=== PATIENT | male | born 1990 | race Caucasian/White ===

== ENCOUNTER 2017-12-23 23:17 | Inpatient (IN) ==
[2017-12-23] MEDS ORDERED: Isovue-370 500 ML INFUS..BTL IV ONE (23:28)
[2017-12-23] MEDS ORDERED: Famotidine 20 MG/2 ML VIAL IVP ONE (23:29)
[2017-12-23] MEDS ORDERED: *HR* FentaNYL (PF) 100 MCG/2 ML VIAL IVP ONE (23:29)
[2017-12-23] MEDS ORDERED: Ondansetron 4 MG/2 ML VIAL IVP ONE (23:29)
--- NOTE | 2017-12-23 23:30 | Emergency Department Note ---
Disposition Clinical Impression: Small bowel obstruction, Abdominal pain Disposition: Admitted As Inpatient Condition: Fair General Adult HPI - General Chief complaint: ED Abdominal Pain Stated complaint: "Abd Pain/Here Earlier Today" Time Seen by Provider: 12/23/17 23:25 Source: patient, family Limitations: no limitations - History of Present Illness Pain Scale: 10 - Related Data Home Medications Medication Instructions Recorded Confirmed RX: SUMAtriptan Succinate [Imitrex] 100 mg PO PRN PRN 12/11/14 12/22/14 RX: Topiramate [Topamax] 50 mg PO BID 12/11/14 12/22/14 Previous Rx's Medication Instructions Recorded OxyCODONE/APAP 5/325 [Percocet 1 each PO Q4HR PRN #30 tablet 12/22/14 5/325] Phenazopyridine HCl [Pyridium] 200 mg PO TIDAC #12 tab 12/22/14 HYDROcodone/Acet 5/325 mg [[place] 1 - 2 tab PO Q6H PRN 3 Days #10 tab 12/22/17 5-325 mg] Ondansetron ODT [Zofran ODT] 4 mg SL Q8HR PRN #12 tab.rapdis 12/22/17 Ondansetron ODT [Zofran ODT] 4 mg SL Q6HR #4 tab.rapdis 12/23/17 Allergies Allergy/AdvReac Type Severity Reaction Status Date / Time sulfamethoxazole Allergy Rash Verified 12/23/17 16:25 [From Bactrim] trimethoprim [From Bactrim] Allergy Rash Verified 12/23/17 16:25 Past Medical History - Past Medical History Medical history: Reports: kidney stones, migraine Surgical history: Reports: appendectomy Psychiatric history: Reports: no psych history - Social History Smoking Status: Never smoker Smokeless Tobacco Status: No Alcohol use: Reports: none Drug use: Reports: none Physical Exam - General Limitations: no limitations General appearance: alert, in no apparent distress Course Vital Signs Temperature 98.2 F 12/23/17 23:23 Pulse Rate 63 12/23/17 23:23 Respiratory Rate 22 12/23/17 23:23 Blood Pressure 126/89 12/23/17 23:23 O2 Sat by Pulse Oximetry 99 12/23/17 23:23 Temperature 98.2 F 12/23/17 23:23 Pulse Rate 52 12/24/17 04:59 Respiratory Rate 18 12/24/17 04:59 Blood Pressure 112/64 12/24/17 04:59 O2 Sat by Pulse Oximetry 100 12/24/17 04:59 Oxygen Delivery Oxygen Delivery Room Air Medical Decision Making - Lab Data Result diagrams: 12/24/17 04:30 12/24/17 04:30 Lab Results 12/23/17 12/23/17 12/24/17 Range/Units 23:50 23:50 00:30 WBC 6.7 (4.3-11.1) K/mcL RBC 5.19 (4.19-5.50) M/mcL Hgb 15.3 (12.9-16.9) g/dL Hct 43.1 (37.5-50.1) % MCV 83.0 (83.0-100.0) fL MCH 29.5 (28.0-33.3) pg MCHC 35.5 (31.6-35.5) g/dL RDW 12.0 (11.5-14.5) % Plt Count 199 (140-400) K/mcL MPV 9.8 (9.4-12.4) fL Immature Gran % 0.2 (0-4) % Seg Neutrophils % 71.8 % Lymphocytes % 20.8 % Monocytes % 6.5 % Eosinophils % 0.5 % Basophils % 0.2 % Neutrophils # 4.8 (1.6-8.9) K/mcL Lymphocytes # 1.4 (0.6-4.6) K/mcL Monocytes # 0.4 (0.0-1.3) K/mcL Eosinophils # 0.0 (0.0-0.6) K/mcL Basophils # 0.0 (0.0-0.2) K/mcL Sodium 138 (136-145) mEq/L Potassium 3.9 (3.5-5.1) mEq/L Chloride 106 (98-107) mEq/L Carbon Dioxide 23 (23-29) mEq/L BUN 11 (6-20) mg/dL Creatinine 0.86 (0.70-1.30) mg/dL Est GFR ( Amer) > 60 (> 60) Est GFR (Non-Af Amer) > 60 (> 60) BUN/Creatinine Ratio 13 (6-26) Glucose 103 (70-105) mg/dL Calculated Osmolality 286 (280-300) Lactic Acid 0.7 (0.5-2.2) mmol/L Calcium 9.2 (8.6-10.3) mg/dL Magnesium (1.6-2.6) mg/dL Total Bilirubin 0.8 (0.3-1.0) mg/dL AST 19 (13-39) Units/L ALT 31 (7-52) Units/L Alkaline Phosphatase 68 (34-104) Units/L Serum Total Protein 6.7 (6.4-8.9) g/dL Albumin 4.5 (3.5-5.7) g/dL Globulin 2.2 L (2.4-3.5) g/dL Albumin/Globulin Ratio 2.0 (1.1-2.2) Amylase 18 L (29-103) Units/L Lipase 9 L (11-82) Units/L 12/24/17 12/24/17 Range/Units 04:30 04:30 WBC 5.1 (4.3-11.1) K/mcL RBC 4.90 (4.19-5.50) M/mcL Hgb 14.4 (12.9-16.9) g/dL Hct 41.5 (37.5-50.1) % MCV 84.7 (83.0-100.0) fL MCH 29.4 (28.0-33.3) pg MCHC 34.7 (31.6-35.5) g/dL RDW 12.1 (11.5-14.5) % Plt Count 165 (140-400) K/mcL MPV 9.3 L (9.4-12.4) fL Immature Gran % 0.2 (0-4) % Seg Neutrophils % 63.1 % Lymphocytes % 29.2 % Monocytes % 6.7 % Eosinophils % 0.6 % Basophils % 0.2 % Neutrophils # 3.2 (1.6-8.9) K/mcL Lymphocytes # 1.5 (0.6-4.6) K/mcL Monocytes # 0.3 (0.0-1.3) K/mcL Eosinophils # 0.0 (0.0-0.6) K/mcL Basophils # 0.0 (0.0-0.2) K/mcL Sodium 138 (136-145) mEq/L Potassium 4.0 (3.5-5.1) mEq/L Chloride 108 H (98-107) mEq/L Carbon Dioxide 22 L (23-29) mEq/L BUN 11 (6-20) mg/dL Creatinine 0.76 (0.70-1.30) mg/dL Est GFR ( Amer) > 60 (> 60) Est GFR (Non-Af Amer) > 60 (> 60) BUN/Creatinine Ratio 14 (6-26) Glucose 97 (70-105) mg/dL Calculated Osmolality 285 (280-300) Lactic Acid (0.5-2.2) mmol/L Calcium 8.6 (8.6-10.3) mg/dL Magnesium 1.8 (1.6-2.6) mg/dL Total Bilirubin (0.3-1.0) mg/dL AST (13-39) Units/L ALT (7-52) Units/L Alkaline Phosphatase (34-104) Units/L Serum Total Protein (6.4-8.9) g/dL Albumin (3.5-5.7) g/dL Globulin (2.4-3.5) g/dL Albumin/Globulin Ratio (1.1-2.2) Amylase (29-103) Units/L Lipase (11-82) Units/L Attestation Statement - Attestation Attestation: I examined this patient and my medical decision-making was reviewed with the Resident Physician. I agree with the documented findings, disposition and treatment plan as described except to the extent set forth below. [id number] time provided Patient presents with upper epigastric and right upper quadrant abdominal pain. He is extremely anxious, tearful and appears in pain upon arrival to the medical treatment area. Pain is been present for the past 3 days. I did review the transcribed report of the gallbladder ultrasound dated earlier today as well as laboratory investigation obtained within the past 48 hours.
--- NOTE | 2017-12-23 23:44 | Emergency Department Note ---
Disposition Clinical Impression: Small bowel obstruction Abdominal pain Qualifiers: Abdominal location: epigastric Qualified Code(s): R10.13 - Epigastric pain Disposition: Admitted As Inpatient Condition: Fair Time of Disposition: 03:48 Abdominal Pain HPI - General Chief Complaint: ED Abdominal Pain Stated Complaint: "Abd Pain/Here Earlier Today" Time Seen by Provider: 12/23/17 23:25 Source: patient, family Nursing Notes Reviewed: Yes Vital Signs Reviewed: Yes - History of Present Illness HPI Narrative: 27 year old male presents for abdominal pain that started 3 days ago. Patient indicates pain at epigastrium that radiates straight to the back. Describes intermittent stabbing pain that worsens with eating/drinking. Patient states that he hasn't eaten or drank anything for 2 days. States anything he takes comes right back up, including oral meds. Patient states he has vicodin for the pain but he can't keep it down. Patient reports that he has an appointment with surgery tomorrow to talk about gallbladder sludge, but states he can't wait til tomorrow. Denies fever, urinary symptoms, bowel changes, chest pain, shortness of breath, swelling. Mother reports medical history of migraine, kidney stones, appendectomy, tonsillectomy, adenoidectomy. Denies tobacco, alcohol, drugs. Pain Scale: 10 - Related Data Home Medications Medication Instructions Recorded Confirmed SUMAtriptan Succinate [Imitrex] 100 mg PO PRN PRN 12/11/14 12/22/14 Topiramate [Topamax] 50 mg PO BID 12/11/14 12/22/14 Previous Rx's Medication Instructions Recorded OxyCODONE/APAP 5/325 [Percocet 1 each PO Q4HR PRN #30 tablet 12/22/14 5/325] Phenazopyridine HCl [Pyridium] 200 mg PO TIDAC #12 tab 12/22/14 HYDROcodone/Acet 5/325 mg [[place] 1 - 2 tab PO Q6H PRN 3 Days #10 tab 12/22/17 5-325 mg] Ondansetron ODT [Zofran ODT] 4 mg SL Q8HR PRN #12 tab.rapdis 12/22/17 Ondansetron ODT [Zofran ODT] 4 mg SL Q6HR #4 tab.rapdis 11/14/18 Allergies Allergy/AdvReac Type Severity Reaction Status Date / Time sulfamethoxazole Allergy Rash Verified 12/23/17 16:25 [From Bactrim] trimethoprim [From Bactrim] Allergy Rash Verified 12/23/17 16:25 Constitutional: Denies: fever, chills Eyes: Denies: eye pain, eye discharge ENT ED: Denies: ear pain, throat pain Cardiovascular: Denies: chest pain, palpitations Respiratory: Denies: cough, dyspnea Gastrointestinal: Reports: abdominal pain, vomiting Genitourinary: Denies: urgency, dysuria Musculoskeletal: Denies: back pain, neck pain Integumentary: Denies: rash, abrasion Neurological: Denies: headache, weakness Abdominal Pain PMH - Past Medical History Medical history: Reports: kidney stones, migraine Male Surgical History: Reports: Adenoidectomy, appendectomy, Tonsillectomy Psychiatric history: Reports: no psych history - Social History Smoking status: Never smoker Alcohol use: Reports: none Drug use: Reports: none Physical Exam - General Limitations: no limitations General appearance: alert, in distress - Head Head exam: atraumatic, normocephalic - Eye Eye exam: Present: PERRL, EOMI - ENT ENT exam: normal oropharynx, mucous membranes dry - Neck Neck exam: Present: normal inspection - Chest Chest inspection: Present: normal inspection, symmetric chest wall rise - Respiratory Respiratory exam: Present: normal lung sounds bilaterally. Absent: respiratory distress - Cardiovascular Cardiovascular exam: Present: regular rate, normal rhythm - Abdominal Exam Abdominal exam: Present: soft, tenderness, normal bowel sounds. Absent: distention, guarding, rebound, rigidity Abdominal tenderness: Present: epigastrium - Extremities Exam Extremities exam: Present: normal inspection. Absent: tenderness, pedal edema, joint swelling - Neurological Exam Neurological exam: Present: alert, oriented X3 - Skin Skin exam: Present: warm, dry, intact, normal color Course Course Narrative: 27 year old male presents for epigastric abdominal pain exacerbated by oral intake. Patient is alert and oriented and hemodynamically stable. He appears in distress. He is holding his abdomen rocking back and forth and groaning in pain. On exam, there is tenderness to palpation of epigastrium. Palpation of RUQ also causes pain at epigastrium. No guarding or rebound. Will check belly labs. Will check CT abd/pelvis. Will provide IV pepcid, zofran, fentanyl, and IVF. Review of medical records shows that patient presented to [facility] ED 2 days ago. Labs were unremarkable. Had CT abd/pelvis and was diagnosed with bilateral nonobstructing renal stones. Yesterday, patient presented to [place] ED. Labwork was negative. Patient improved and was discharged with zofran and norco for biliary colic. Patient was instructed to get outpatient ultrasound and followup with surgery. Patient presented again earlier today. Belly labs were negative. Had RUQ ultrasound that showed artifact vs gallbladder sludge. Patient improved and was discharged with zofran and oxycodone for biliary colic. Patient was set up with appointment with surgery tomorrow. - Reevaluation(s) Reevaluation #1: CBC is unremarkable, there is no leukocytosis. CMP is unremarkable. Amylase and lipase are negative. Lactic is normal. Checking on patient at 00:40, patient is resting comfortably in bed. No acute distress. He's not holding his abdomen, groaning, or crying. Patient states he feels better. Patient has been trying to eat the prescribed zofran instead of placing under tongue and has not been able to keep zofran down. Patient was counseled on correct usage of sublingual zofran. Checking on patient at 01:12, patient is sitting in bed bent over and crying that he's in pain. States pain is as bad as when he first came in. It has been 1hr since 100mcg fentanyl administration. Will provide dilaudid. Checking on patient at 01:48, patient is sleeping. Time: 01:13 Reevaluation #2: CT abd/pelvis shows acute SBO in LLQ. Discussed results with patient. Patient voiced understanding and agree to admission. Time: 03:47 Vital Signs Temperature 98.2 F 12/23/17 23:23 Pulse Rate 63 12/23/17 23:23 Respiratory Rate 22 12/23/17 23:23 Blood Pressure 126/89 12/23/17 23:23 O2 Sat by Pulse Oximetry 99 12/23/17 23:23 Temperature 98.2 F 12/23/17 23:23 Pulse Rate 46 12/24/17 04:21 Respiratory Rate 16 12/24/17 04:21 Blood Pressure 105/62 12/24/17 04:21 O2 Sat by Pulse Oximetry 94 12/24/17 04:21 Oxygen Delivery Oxygen Delivery Room Air Abdominal Pain - MDM Narrative Medical decision making narrative: Abdomen/Pelvis CT 12/24/17 23:28 IMPRESSION: 1. Acute small bowel obstruction with a gradual transition to normal caliber in the left lower quadrant. 2. Nonobstructing bilateral renal calculi. D/ / Yasmine Cooper MD / Yasmine Cooper MD Interpreting Provider: Yasmine Cooper MD - Medical Records Medical records reviewed: Yes I reviewed the patient's medical records. - Lab Data Lab results reviewed: Yes I reviewed the patient's lab results. Result diagrams: 12/23/17 23:50 12/23/17 23:50 Lab Results 12/23/17 12/23/17 12/24/17 Range/Units 23:50 23:50 00:30 WBC 6.7 (4.3-11.1) K/mcL RBC 5.19 (4.19-5.50) M/mcL Hgb 15.3 (12.9-16.9) g/dL Hct 43.1 (37.5-50.1) % MCV 83.0 (83.0-100.0) fL MCH 29.5 (28.0-33.3) pg MCHC 35.5 (31.6-35.5) g/dL RDW 12.0 (11.5-14.5) % Plt Count 199 (140-400) K/mcL MPV 9.8 (9.4-12.4) fL Immature Gran % 0.2 (0-4) % Seg Neutrophils % 71.8 % Lymphocytes % 20.8 % Monocytes % 6.5 % Eosinophils % 0.5 % Basophils % 0.2 % Neutrophils # 4.8 (1.6-8.9) K/mcL Lymphocytes # 1.4 (0.6-4.6) K/mcL Monocytes # 0.4 (0.0-1.3) K/mcL Eosinophils # 0.0 (0.0-0.6) K/mcL Basophils # 0.0 (0.0-0.2) K/mcL Sodium 138 (136-145) mEq/L Potassium 3.9 (3.5-5.1) mEq/L Chloride 106 (98-107) mEq/L Carbon Dioxide 23 (23-29) mEq/L BUN 11 (6-20) mg/dL Creatinine 0.86 (0.70-1.30) mg/dL Est GFR ( Amer) > 60 (> 60) Est GFR (Non-Af Amer) > 60 (> 60) BUN/Creatinine Ratio 13 (6-26) Glucose 103 (70-105) mg/dL Calculated Osmolality 286 (280-300) Lactic Acid 0.7 (0.5-2.2) mmol/L Calcium 9.2 (8.6-10.3) mg/dL Total Bilirubin 0.8 (0.3-1.0) mg/dL AST 19 (13-39) Units/L ALT 31 (7-52) Units/L Alkaline Phosphatase 68 (34-104) Units/L Serum Total Protein 6.7 (6.4-8.9) g/dL Albumin 4.5 (3.5-5.7) g/dL Globulin 2.2 L (2.4-3.5) g/dL Albumin/Globulin Ratio 2.0 (1.1-2.2) Amylase 18 L (29-103) Units/L Lipase 9 L (11-82) Units/L - Radiology Data Radiology results reviewed: Yes I reviewed the patient's radiology results.
[2017-12-23] MEDS ORDERED: 0.9 % Sodium Chloride 1,000 ML IVC ONE (23:58)
[2017-12-24] MEDS ORDERED: *HR* FentaNYL (PF) 100 MCG/2 ML VIAL IVP ONE (00:01)
[2017-12-24 00:27] LABS: Basophils % 0.2 %; Eosinophils % 0.5 %; Hematocrit 43.1 % (37.5-50.1); Hemoglobin 15.3 g/dL (12.9-16.9); Immature Granulocytes % 0.2 % (0-4); Lymphocytes # 1.4 K/mcL (0.6-4.6); Lymphocytes % 20.8 %; Mean Corpuscular HGB Conc 35.5 g/dL (31.6-35.5); Mean Corpuscular Hemoglobin 29.5 pg (28.0-33.3); Mean Platelet Volume 9.8 fL (9.4-12.4); Monocytes # 0.4 K/mcL (0.0-1.3); Monocytes % 6.5 %; Neutrophils # 4.8 K/mcL (1.6-8.9); Platelet Count 199 K/mcL (140-400); Red Blood Count 5.19 M/mcL (4.19-5.50); Segmented Neutrophils % 71.8 %
[2017-12-24 00:55] LABS: Alanine Aminotransferase 31 Units/L (7-52); Albumin 4.5 g/dL (3.5-5.7); Alkaline Phosphatase 68 Units/L (34-104); Amylase 18 Units/L (29-103); Aspartate Amino Transferase 19 Units/L (13-39); BUN/Creatinine Ratio 13 (6-26); Bilirubin,Total 0.8 mg/dL (0.3-1.0); Blood Urea Nitrogen 11 mg/dL (6-20); Calcium 9.2 mg/dL (8.6-10.3); Carbon Dioxide 23 mEq/L (23-29); Chloride 106 mEq/L (98-107); Globulin 2.2 g/dL (2.4-3.5); Glucose 103 mg/dL (70-105); Lipase 9 Units/L (11-82); Osmolality,Calculated 286 (280-300); Potassium 3.9 mEq/L (3.5-5.1); Sodium 138 mEq/L (136-145); Total Protein 6.7 g/dL (6.4-8.9); eGFR For Non-African Americans > 60 (> 60)
[2017-12-24] MEDS ORDERED: *HR* HYDROmorphone (PF) 1 MG/ML SYRINGE IVP ONE ×2 (01:10→03:56)
[2017-12-24] MEDS ORDERED: Naloxone 0.4 MG/ML INJ IVP PRN ×2 (03:55→21:49)
[2017-12-24] MEDS ORDERED: Ondansetron 4 MG/2 ML VIAL IVP PRN ×2 (03:55→21:49)
--- NOTE | 2017-12-24 04:04 | Internal Med History&Physical ---
Date of Encounter: 12/24/17 Time of Encounter: 03:59 Internal Medicine - H&P: HPI Chief complaint: Abdominal pain Admitted From: Emergency Dept Plans for Post Hospital Care: Home History of present illness: Mr. Hawkins is a 27 year old male who has a history of migraines, bradycardia that has been worked up in the past with holter monitor and stress test that were all unremarkable, and history of kidney stones who presented with abdominal pain that has been going on for about 3 days. Mostly epigastric pain with radiation to the back. He has been vomiting and nauseous. Has not been able to keep anything down PO boone. The patient has had multiple presentations to the ED here and at [facility] for the last 3 days. He was seen in our ED twice over the last 24 hours. At [facility] apparently had a CT abdomen and pelvis that only showed nonobstructing bilateral renal stones. He was discharged from there. He presented to the ED a couple times as I said since then and was recommended follow-up with surgery. There was a suspicion that he may have gallbladder disease and was ordered a gallbladder ultrasound which came back showing possible gallbladder sludge. Finally a CT abdomen and pelvis was repeated in the ED this time and showed an acute small bowel obstruction with gradual transition to normal caliber in the left lower quadrant. There was also nonobstructing bilateral renal calculi again. Denies any headache, blurry vision, dizziness, chest pain, shortness of breath, diarrhea, dysuria, lower extremity edema, rashes, neurological symptoms such as numbness or tingling. The CT laboratory workup was mostly unremarkable. He had an NG tube placed. He was given IV pain medications. IV Zofran, and IV fluids. Past Med Surg Social Fam HX - Past Medical History Medical history: kidney stones, migraine Psychiatric history: no psych history - Past Surgical History Surgical History: appendectomy Additional surgical history: tonsils and adnoids - Social History Smoking Status: Never smoker Smokeless Tobacco Status: No Alcohol use: none Drug use: none - Family History Mother Hx Family Cardiac Disorders: Yes (high cholesterol) Hx Family Endocrine Disorder: Yes (thyroid) Hx Family Neuromuscular Disorders: Yes (migraines) Internal Medicine - H&P: Meds SUMAtriptan Succinate [Imitrex] 100 mg PO PRN PRN 12/11/14 [History] Topiramate [Topamax] 50 mg PO BID 12/11/14 [History] OxyCODONE/APAP 5/325 [Percocet 5/325] 1 each PO Q4HR PRN #30 tablet 12/22/14 [Rx] Phenazopyridine HCl [Pyridium] 200 mg PO TIDAC #12 tab 12/22/14 [Rx] HYDROcodone/Acet 5/325 mg [[place] 5-325 mg] 1 - 2 tab PO Q6H PRN 3 Days #10 tab 12/22/17 [Rx] Ondansetron ODT [Zofran ODT] 4 mg SL Q8HR PRN #12 tab.rapdis 12/22/17 [Rx] Ondansetron ODT [Zofran ODT] 4 mg SL Q6HR #4 tab.rapdis 12/23/17 [Rx] Allergy/AdvReac Type Severity Reaction Status Date / Time sulfamethoxazole Allergy Rash Verified 12/23/17 16:25 [From Bactrim] trimethoprim [From Bactrim] Allergy Rash Verified 12/23/17 16:25 All Systems PM: A 10-system review of systems was performed and is negative for pertinent findings except as documented above in the HPI. Review of systems: All systems reviewed are negative except for as mentioned above - Constitutional Vitals: Temp Pulse Resp BP Pulse Ox 98.2 F 41 16 102/56 96 12/23/17 23:23 12/24/17 01:55 12/24/17 01:55 12/24/17 01:55 12/24/17 01:55 Exam: GEN: NAD HEENT: AT, NC, No cyanosis, oral mucosa is moist, No JVD Lymphatics: No lymphadenoapthy Eyes: Extrocular muscles intact, anicteric CVS:RRR. S1, S2, No m/r/g RESP: CTAB ABD: Distended, generalized tenderness, no rebound, + absent bowel sounds EXT: No edema, No rashes, 2+ DP NEURO: Nonfocal, CN II-XII intact, No focal motor or sensory deficits Psych: Cooperative, Not anxious or depressed Internal Med - H&P Results - Labs CBC & Chem 7: 12/24/17 04:30 12/23/17 23:50 Labs: Short CBC 12/23/17 Range/Units 23:50 WBC 6.7 (4.3-11.1) K/mcL Hgb 15.3 (12.9-16.9) g/dL Hct 43.1 (37.5-50.1) % Plt Count 199 (140-400) K/mcL Neutrophils # 4.8 (1.6-8.9) K/mcL BMP 12/23/17 23:50 Sodium 138 Potassium 3.9 Chloride 106 Carbon Dioxide 23 BUN 11 Creatinine 0.86 Glucose 103 Calcium 9.2 Liver Function 12/23/17 Range/Units 23:50 Total Bilirubin 0.8 (0.3-1.0) mg/dL AST 19 (13-39) Units/L ALT 31 (7-52) Units/L Alkaline Phosphatase 68 (34-104) Units/L Albumin 4.5 (3.5-5.7) g/dL - Impressions ITS Impressions Abdomen/Pelvis CT 12/24/17 23:28 IMPRESSION: 1. Acute small bowel obstruction with a gradual transition to normal caliber in the left lower quadrant. 2. Nonobstructing bilateral renal calculi. D/ / Yasmine Cooper MD / Yasmine Cooper MD Interpreting Provider: Yasmine Cooper MD - Assessment and plan (1) Small bowel obstruction Current Visit: Yes Status: Acute Assessment and plan: Will admit to hospitalist. I spoke to Dr. Valencia who will be seeing the patient in the morning. He is agreeable with NG tube. NPO. Pain control will be ordered. IV fluids. Antiemetics (2) Bradycardia Current Visit: Yes Status: Acute Assessment and plan: seems to be chronic for years and stable. Had holter monitor and stress test done for this and were unremarkable. His thyroid was also tested and was normal. Will just monitor. (3) DVT prophylaxis Current Visit: No Status: Acute Assessment and plan: Heparin subcutaneous - Time Spent With Patient Total time spent is greater than 50% in coordination of care (as documented) at patient's floor/unit and/or counseling patient:
[2017-12-24] MEDS: 0.9 % Sodium Chloride 1,000 ML IVC SCH ×3 (04:20→22:40)
[2017-12-24 04:44] LABS: Basophils % 0.2 %; Eosinophils % 0.6 %; Hematocrit 41.5 % (37.5-50.1); Hemoglobin 14.4 g/dL (12.9-16.9); Immature Granulocytes % 0.2 % (0-4); Lymphocytes # 1.5 K/mcL (0.6-4.6); Lymphocytes % 29.2 %; Mean Corpuscular HGB Conc 34.7 g/dL (31.6-35.5); Mean Corpuscular Hemoglobin 29.4 pg (28.0-33.3); Mean Corpuscular Volume 84.7 fL (83.0-100.0); Mean Platelet Volume 9.3 fL (9.4-12.4); Monocytes # 0.3 K/mcL (0.0-1.3); Monocytes % 6.7 %; Neutrophils # 3.2 K/mcL (1.6-8.9); Platelet Count 165 K/mcL (140-400); Red Cell Distribution Width 12.1 % (11.5-14.5); Segmented Neutrophils % 63.1 %
[2017-12-24 05:04] LABS: BUN/Creatinine Ratio 14 (6-26); Blood Urea Nitrogen 11 mg/dL (6-20); Calcium 8.6 mg/dL (8.6-10.3); Carbon Dioxide 22 mEq/L (23-29); Chloride 108 mEq/L (98-107); Glucose 97 mg/dL (70-105); Magnesium 1.8 mg/dL (1.6-2.6); Osmolality,Calculated 285 (280-300); Sodium 138 mEq/L (136-145); eGFR For Non-African Americans > 60 (> 60)
[2017-12-24] MEDS: *HR* Heparin 5,000 UNIT/ML VIAL SQ SCH ×3 (06:01→22:40)
[2017-12-24] MEDS: *HR* FentaNYL (PF) 100 MCG/2 ML VIAL IVP PRN ×3 (06:01→15:22)
[2017-12-24] MEDS ORDERED: Acetaminophen IV 1,000 MG/100 ML INFUS..BTL IVPB ONE (08:40)
--- NOTE | 2017-12-24 09:37 | General Surgery Consult Note ---
<Darrell Morrison S - Last Filed: 12/24/17 09:24> Date of Encounter: 12/24/17 Time of Encounter: 07:30 Assessment and Plan (1) Small bowel obstruction Current Visit: Yes Status: Acute CT (12/23) showed evidence of small bowel obstruction with transition in left lower quadrant WBC 5.2 NGT has ~200 ml light green liquid On fentanyl for pain Zofran for nasuea Protonix for GI prophylaxis IVF at 125 ml/hr CT reviewed by Dr. Valencia Ratio of proximal vs distal small bowel dilation is 4:1 Patient will likely need surgical intervention to resolve obstruction, will take to OR today for exploratory laparotomy (2) Bradycardia Current Visit: Yes Status: Acute Management per primary team Chronic and stable History of Present Illness Consult date: 12/24/17 Reason for consult: other (small bowel obstruction) Requesting physician: Mirna Avilez History of present illness: 27 year old male with no PMHx presented to [place] 12/23 with complaints of abdominal pain, nausea, vomiting. Surgery consulted for small bowel obstruction. Patient's labs on arrival were significant for WBC 6.7, Hgb 15.3, lactic acid 0.7. CT showed small bowel obstruction with transition point in left lower quadrant. Patient had NGT placed and started on IVF hydration. Patient seen and examined this morning. He states his pain is epigastric and radiates to his back for the past 3 days. It is sharp and intermittent, worse with eating. Patient admits to associated nausea and non-bloody, non-bilious vomiting during the same time. Patient's last BM was Thursday. Patient last ate yesterday evening. He denies CP, SOB, fevers/chills, BMs, flatus. Patient admits to appendectomy when he was 1 years old and tonsillectomy >10 years ago. Mother had a cholecystectomy. He denies other family history of abdominal issues. He denies smoking, alcohol, and drug use. Past Med Surg Social Fam HX - Past Medical History Medical history: kidney stones, migraine Psychiatric history: no psych history - Past Surgical History Surgical History: appendectomy Additional surgical history: tonsils and adnoids - Social History Smoking Status: Never smoker Smokeless Tobacco Status: No Alcohol use: none Drug use: none - Family History Father Living Status: Still Living Mother Living Status: Still Living Hx Family Cardiac Disorders: Yes (high cholesterol) Hx Family Endocrine Disorder: Yes (thyroid) Hx Family Neuromuscular Disorders: Yes (migraines) Medications and Allergies RX: SUMAtriptan Succinate [Imitrex] 100 mg PO PRN PRN 12/11/14 [History] RX: Topiramate [Topamax] 50 mg PO BID 12/11/14 [History] OxyCODONE/APAP 5/325 [Percocet 5/325] 1 each PO Q4HR PRN #30 tablet 12/22/14 [Rx] Phenazopyridine HCl [Pyridium] 200 mg PO TIDAC #12 tab 12/22/14 [Rx] HYDROcodone/Acet 5/325 mg [[place] 5-325 mg] 1 - 2 tab PO Q6H PRN 3 Days #10 tab 12/22/17 [Rx] Ondansetron ODT [Zofran ODT] 4 mg SL Q8HR PRN #12 tab.rapdis 12/22/17 [Rx] Ondansetron ODT [Zofran ODT] 4 mg SL Q6HR #4 tab.rapdis 12/23/17 [Rx] Allergy/AdvReac Type Severity Reaction Status Date / Time sulfamethoxazole Allergy Rash Verified 12/23/17 16:25 [From Bactrim] trimethoprim [From Bactrim] Allergy Rash Verified 12/23/17 16:25 Review of Systems All systems PM: The remainder of the systems were reviewed and are negative General Surgery Exam Initial Vital Signs Temp Pulse Resp BP Pulse Ox 98.2 F 63 22 126/89 99 12/23/17 23:23 12/23/17 23:23 12/23/17 23:23 12/23/17 23:23 12/23/17 23:23 - General physical appearance well developed, well nourished, no distress - Respiratory normal expansion, normal respiratory effort - Cardiovascular Cardiovascular exam: Present: RRR - Abdomen Abdomen general surgery: Present: bowel sounds present (high-pitched), soft, t eugene Abdominal Tenderness: Present: epigastic - Integumentary Integumentary general surgery: Present: warm and dry, no abnormal pigmentation - Psychiatric Psychiatric general surgery: Present: A&Ox3, appropriate Exam Initial Vital Signs Temp Pulse Resp BP Pulse Ox 98.2 F 63 22 126/89 99 12/23/17 23:23 12/23/17 23:23 12/23/17 23:23 12/23/17 23:23 12/23/17 23:23 Results - Labs 12/24/17 04:30 12/24/17 04:30 Abnormal lab results MPV 9.3 fL (9.4-12.4) L 12/24/17 04:30 Chloride 108 mEq/L (98-107) H 12/24/17 04:30 Carbon Dioxide 22 mEq/L (23-29) L 12/24/17 04:30 Globulin 2.2 g/dL (2.4-3.5) L 12/23/17 23:50 Amylase 18 Units/L (29-103) L 12/23/17 23:50 Lipase 9 Units/L (11-82) L 12/23/17 23:50 Diabetes panel 12/23/17 12/24/17 Range/Units 23:50 04:30 Sodium 138 138 (136-145) mEq/L Potassium 3.9 4.0 (3.5-5.1) mEq/L Chloride 106 108 H (98-107) mEq/L Carbon Dioxide 23 22 L (23-29) mEq/L BUN 11 11 (6-20) mg/dL Creatinine 0.86 0.76 (0.70-1.30) mg/dL Glucose 103 97 (70-105) mg/dL Calcium 9.2 8.6 (8.6-10.3) mg/dL AST 19 (13-39) Units/L ALT 31 (7-52) Units/L Alkaline Phosphatase 68 (34-104) Units/L Albumin 4.5 (3.5-5.7) g/dL Calcium panel 12/23/17 12/24/17 Range/Units 23:50 04:30 Calcium 9.2 8.6 (8.6-10.3) mg/dL Albumin 4.5 (3.5-5.7) g/dL Pituitary panel 12/23/17 12/24/17 Range/Units 23:50 04:30 Sodium 138 138 (136-145) mEq/L Potassium 3.9 4.0 (3.5-5.1) mEq/L Chloride 106 108 H (98-107) mEq/L Carbon Dioxide 23 22 L (23-29) mEq/L BUN 11 11 (6-20) mg/dL Creatinine 0.86 0.76 (0.70-1.30) mg/dL Glucose 103 97 (70-105) mg/dL Calcium 9.2 8.6 (8.6-10.3) mg/dL Adrenal panel 12/23/17 12/24/17 Range/Units 23:50 04:30 Sodium 138 138 (136-145) mEq/L Potassium 3.9 4.0 (3.5-5.1) mEq/L Chloride 106 108 H (98-107) mEq/L Carbon Dioxide 23 22 L (23-29) mEq/L BUN 11 11 (6-20) mg/dL Creatinine 0.86 0.76 (0.70-1.30) mg/dL Glucose 103 97 (70-105) mg/dL Calcium 9.2 8.6 (8.6-10.3) mg/dL Total Bilirubin 0.8 (0.3-1.0) mg/dL AST 19 (13-39) Units/L ALT 31 (7-52) Units/L Alkaline Phosphatase 68 (34-104) Units/L Albumin 4.5 (3.5-5.7) g/dL All other labs normal. Consult Discharge Plan - Plan Referrals: Alicia Zaldivar, CONCRETE PANEL INSTALLER [Primary Care Provider] - <Glenn Valencia - Last Filed: 12/24/17 21:17> Date of Encounter: 12/24/17 Review of Systems All systems PM: The remainder of the systems were reviewed and are negative General Surgery Exam Initial Vital Signs Temp Pulse Resp BP Pulse Ox 98.2 F 63 22 126/89 99 12/23/17 23:23 12/23/17 23:23 12/23/17 23:23 12/23/17 23:23 12/23/17 23:23 Exam Initial Vital Signs Temp Pulse Resp BP Pulse Ox 98.2 F 63 22 126/89 99 12/23/17 23:23 12/23/17 23:23 12/23/17 23:23 12/23/17 23:23 12/23/17 23:23 Results - Labs 12/24/17 04:30 12/24/17 04:30 Abnormal lab results MPV 9.3 fL (9.4-12.4) L 12/24/17 04:30 Chloride 108 mEq/L (98-107) H 12/24/17 04:30 Carbon Dioxide 22 mEq/L (23-29) L 12/24/17 04:30 Globulin 2.2 g/dL (2.4-3.5) L 12/23/17 23:50 Amylase 18 Units/L (29-103) L 12/23/17 23:50 Lipase 9 Units/L (11-82) L 12/23/17 23:50 Diabetes panel 12/23/17 12/24/17 Range/Units 23:50 04:30 Sodium 138 138 (136-145) mEq/L Potassium 3.9 4.0 (3.5-5.1) mEq/L Chloride 106 108 H (98-107) mEq/L Carbon Dioxide 23 22 L (23-29) mEq/L BUN 11 11 (6-20) mg/dL Creatinine 0.86 0.76 (0.70-1.30) mg/dL Glucose 103 97 (70-105) mg/dL Calcium 9.2 8.6 (8.6-10.3) mg/dL AST 19 (13-39) Units/L ALT 31 (7-52) Units/L Alkaline Phosphatase 68 (34-104) Units/L Albumin 4.5 (3.5-5.7) g/dL Calcium panel 12/23/17 12/24/17 Range/Units 23:50 04:30 Calcium 9.2 8.6 (8.6-10.3) mg/dL Albumin 4.5 (3.5-5.7) g/dL Pituitary panel 12/23/17 12/24/17 Range/Units 23:50 04:30 Sodium 138 138 (136-145) mEq/L Potassium 3.9 4.0 (3.5-5.1) mEq/L Chloride 106 108 H (98-107) mEq/L Carbon Dioxide 23 22 L (23-29) mEq/L BUN 11 11 (6-20) mg/dL Creatinine 0.86 0.76 (0.70-1.30) mg/dL Glucose 103 97 (70-105) mg/dL Calcium 9.2 8.6 (8.6-10.3) mg/dL Adrenal panel 11/14/18 11/15/18 Range/Units 23:50 04:30 Sodium 138 138 (136-145) mEq/L Potassium 3.9 4.0 (3.5-5.1) mEq/L Chloride 106 108 H (98-107) mEq/L Carbon Dioxide 23 22 L (23-29) mEq/L BUN 11 11 (6-20) mg/dL Creatinine 0.86 0.76 (0.70-1.30) mg/dL Glucose 103 97 (70-105) mg/dL Calcium 9.2 8.6 (8.6-10.3) mg/dL Total Bilirubin 0.8 (0.3-1.0) mg/dL AST 19 (13-39) Units/L ALT 31 (7-52) Units/L Alkaline Phosphatase 68 (34-104) Units/L Albumin 4.5 (3.5-5.7) g/dL All other labs normal. - Attending Attestation I examined this patient and my medical decision-making was reviewed with the Resident Physician. I agree with the documented findings, disposition and carmen tment plan as described except to the extent set forth below. The patient is seen and evaluated on morning rounds with the resident. Review of his CAT scan demonstrates a transition point between proximal dilated and distal flaccid small bowel. He is symptomatic with vomiting. I believe that this constitutes a high-grade partial bowel obstruction. With this ratio between the proximal and distal small bowel , my experience is that this represents adhesion or internal hernia. I have recommended exploratory laparotomy Glenn Valencia MD FACS
[2017-12-24] MEDS ORDERED: Pantoprazole 40 MG VIAL IVP SCH (09:45)
--- NOTE | 2017-12-24 10:59 | Event Note ---
Date of Encounter: 12/24/17 Time of Encounter: 10:57 Patient with history of migraine, obesity, bradycardia, kidney stone patient admitted with abdominal pain for [address] of the abdomen shows small bowel obstruction patient had been seen by surgery and plan for exploratory laparotomy today to relieve the obstruction patient currently remained hemodynamically stable heart rate 52 asymptomatic hemodynamically stable and NG tube is in place
[2017-12-24] MEDS: Chloraseptic Spray 177 ML BOTTLE MM PRN ×2 (16:15→18:10)
--- NOTE | 2017-12-24 19:26 | Anesthesia Evaluation PreOp ---
Date of Encounter: 12/24/17 Time of Encounter: 19:24 - Past History Planned Operation: Expl Lap/SBR Cardiac History: Arrhythmia (Hx bradycardia with unremarkable Holter Monitor) Pulmonary History: Denies Any Significant HX HEAVY COIL WINDER History: Other (Hx Migraines) Other Medical History: Denies Any Significant HX Anesthesia History: No Prior Anesthetic Complications, Past Anesthesia (L- ureteral stone extraction, C&P stent, Appy, T&A) Alcohol Use: none Drug use: none Medications and Allergies SUMAtriptan Succinate [Imitrex] 100 mg PO PRN PRN 12/11/14 [History] Topiramate [Topamax] 50 mg PO BID 12/11/14 [History] OxyCODONE/APAP 5/325 [Percocet 5/325] 1 each PO Q4HR PRN #30 tablet 12/22/14 [Rx] Phenazopyridine HCl [Pyridium] 200 mg PO TIDAC #12 tab 12/22/14 [Rx] HYDROcodone/Acet 5/325 mg [[place] 5-325 mg] 1 - 2 tab PO Q6H PRN 3 Days #10 tab 12/22/17 [Rx] Ondansetron ODT [Zofran ODT] 4 mg SL Q8HR PRN #12 tab.rapdis 12/22/17 [Rx] Ondansetron ODT [Zofran ODT] 4 mg SL Q6HR #4 tab.rapdis 12/23/17 [Rx] Allergy/AdvReac Type Severity Reaction Status Date / Time sulfamethoxazole Allergy Rash Verified 12/23/17 16:25 [From Bactrim] trimethoprim [From Bactrim] Allergy Rash Verified 12/23/17 16:25 - Meds/Allergy Pre-op Review Medications Reviewed: Yes Allergies Reviewed: Yes Beta Blockers on Current Med List: No Anesthesia Results - Labs 12/24/17 04:30 12/24/17 04:30 Laboratory Results Impressions Abdomen/Pelvis CT 12/24/17 23:28 IMPRESSION: 1. Acute small bowel obstruction with a gradual transition to normal caliber in the left lower quadrant. 2. Nonobstructing bilateral renal calculi. D/ / 12/24/2017 07:31:29 Yasmine Cooper MD / ketan Interpreting Provider: Yasmine Cooper MD Anesthesia Exam Vital Signs Temp Pulse Resp BP Pulse Ox 12/24/17 14:25 97.8 F 45 16 110/71 96 12/24/17 10:26 97.6 F 52 16 127/78 95 12/24/17 06:09 98.2 F 51 14 127/79 100 12/24/17 04:59 52 18 112/64 100 12/24/17 04:21 46 16 105/62 94 12/24/17 01:55 41 16 102/56 96 12/23/17 23:56 63 18 125/77 97 12/23/17 23:23 98.2 F 63 22 126/89 99 Intake and Output 12/24/17 12/24/17 12/24/17 07:59 15:59 23:59 Intake Total 1000 / 1000 1100 / 1100 Output Total 125 / 125 525 / 525 525 / 525 Balance 875 / 875 575 / 575 -525 / -525 Intake: IV Fluids 1000 / 1000 1100 / 1100 0.9 % Sodium Chloride 1,000 ML 1000 / 1000 1000 / 1000 @ 125 mls/hr IVC .Q8H [facility] Rx#: [id number] Ofirmev 1,000 mg/100 ml 1,000 100 / 100 mg In 100 ml @ 400 mls/hr IVPB ONCE ONE Rx#:[id number] Output: Urine 0 / 0 325 / 325 525 / 525 Gastric Tube Lavage Amount 125 / 125 Left Nare 125 / 125 Gastric Drainage 0 / 0 200 / 200 0 / 0 Other: Meal NPO LUNCH NPO DINNER Blood Glucose* 72 74 Height: 5'7" Weight: 241# BMi = 38 NPO (# of Hours): Mnoc - HEENT Pupil (Motor): Pupils equal, EOMI Teeth: Normal Oral Opening: Greater than 3 - HEAVY COIL WINDER LOC: Oriented HEAVY COIL WINDER Motor: Normal RUE, Normal LUE, Normal RLE, Normal LLE, Normal Face HEAVY COIL WINDER Sensory: Normal: RUE, LUE, RLE, LLE, Face - Cardiac Rhythm: Regular Murmur: None - Pulmonary Breath Sounds: bilateral Clear Respiratory Effort: Symmetrical Anesthesia Assess/Plan ASA Score: 3 (Bradycardia, Migraines,) Level of consciousness: Cooperative, Oriented, Tranquil Anesthetic Plan: General Monitoring Plan: Standard Monitors Recovery Plan: PACU Anes Supervising Prov Stmt: Pt seen/evaluated, R&B discussed, questions answered and consent obtained. Kaylynn Mosqueda MD
[2017-12-24] MEDS ORDERED: *HR* FentaNYL (PF) 100 MCG/2 ML VIAL ONE ×2 (19:41→20:29)
[2017-12-24] MEDS ORDERED: Lidocaine -MPF 2% 2 ML VIAL ONE (19:41)
[2017-12-24] MEDS ORDERED: *HR* Propofol 200 MG/20 ML VIAL IVP ONE (19:41)
[2017-12-24] MEDS ORDERED: *HR* Midazolam HCl 2 MG/2 ML VIAL ONE (19:41)
[2017-12-24] MEDS ORDERED: Lidocaine -MPF 4% 5 ML AMPUL ONE (19:41)
[2017-12-24] MEDS ORDERED: CefOXitin 1,000 MG VIAL ONE (19:42)
[2017-12-24] MEDS ORDERED: CefOXitin 2,000 MG VIAL ONE ×2 (19:48)
[2017-12-24] MEDS ORDERED: Famotidine 20 MG/2 ML VIAL ONE (19:59)
[2017-12-24] MEDS ORDERED: Acetaminophen IV 1,000 MG/100 ML INFUS..BTL ONE ×2 (19:59→20:06)
[2017-12-24] MEDS ORDERED: Neostigmine Methylsulfate 3 MG/3 ML SYRINGE ONE (20:41)
[2017-12-24] MEDS ORDERED: Dexamethasone 4 MG/ML VIAL ONE (20:41)
[2017-12-24] MEDS ORDERED: *HR* Magnesium Sulfate 1 GM/2 ML VIAL ONE (20:41)
[2017-12-24] MEDS ORDERED: Ondansetron 4 MG/2 ML VIAL ONE (20:41)
[2017-12-24] MEDS ORDERED: Bupivacaine/EPI 1:200k 0.5%PF 30 ML VIAL ONE (20:49)
--- NOTE | 2017-12-24 21:10 | Operative Note ---
Date of procedure: 12/24/17 Pre-op diagnosis: Small bowel obstruction Post-op diagnosis: same Procedure: Lysis of adhesions Anesthesia: BRAXTON Surgeon: Glenn Valencia Was there an sales and marketing assistant present: Yes Tester Rocket Engine: Kika Mahoney Estimated blood loss (cc): 20 Specimen: None Condition: stable Disposition: PACU Procedure in Detail: After informed consent patient was taken to the major operative suite placed in supine position given adequate general anesthetic. Abdomen is prepped and draped in sterile fashion utilizing ChloraPrep standard draping techniques. Timeout was taken and patient is identified. I made a midline laparotomy central portion of the abdomen. Upon entering the abdomen it was noted that the proximal small bowel was dilated in the distal was flaccid consistent with findings on CAT scan. I mobilize the small intestine out of the pelvis and the area of transition was noted and then immediately opened. I made a further investigation the pelvis and there was scar tissue on the right side of the pelvis in the area of previous appendectomy. This area of scar tissue was lysed. There was a bleeding area on the surface of the cecum that corresponded to the transition point on the small bowel that was brought out of the pelvis. This was the area of obstruction. I ran the small bowel from proximal to distal twice. There were no other lesions identified. There was no other area of scar tissue. The bowel opened to normal caliber after lysis. The abdomen was irrigated with copious amounts of antibiotic containing solution. Midline was closed with looped 0 PDS. Skin was closed with interrupted Vicryl and skin clips. I injected 25 mL of half percent Marcaine with epinephrine for local pain management
[2017-12-24] MEDS ORDERED: *HR* Promethazine 25 MG/ML VIAL ONE (21:11)
[2017-12-24] MEDS ORDERED: *HR* HYDROmorphone (PF) 1 MG/ML SYRINGE ONE (21:12)
[2017-12-24] MEDS ORDERED: *HR* HYDROmorphone (PF) 1 MG/ML SYRINGE IVP PRN (21:21)
[2017-12-24] MEDS ORDERED: Chloraseptic Spray 177 ML BOTTLE MM PRN (21:49)
[2017-12-24] MEDS: OXYCODONE Oral CONC 10 MG/0.5 ML ORAL.SYG SL PRN (23:42)
[2017-12-25] MEDS: *HR* FentaNYL (PF) 100 MCG/2 ML VIAL IVP PRN ×4 (01:09→12:36)
[2017-12-25] MEDS ORDERED: Acetaminophen IV 1,000 MG/100 ML INFUS..BTL IVPB ONE (04:07)
[2017-12-25 04:27] LABS: BUN/Creatinine Ratio 13 (6-26); Blood Urea Nitrogen 10 mg/dL (6-20); Calcium 8.6 mg/dL (8.6-10.3); Carbon Dioxide 24 mEq/L (23-29); Chloride 103 mEq/L (98-107); Glucose 114 mg/dL (70-105); Osmolality,Calculated 282 (280-300); Sodium 136 mEq/L (136-145); eGFR For Non-African Americans > 60 (> 60)
[2017-12-25] MEDS: *HR* Heparin 5,000 UNIT/ML VIAL SQ SCH ×3 (05:02→20:54)
--- NOTE | 2017-12-25 05:08 | Anesthesia Evaluation Post Op ---
Date of Encounter: 12/25/17 Time of Encounter: 21:40 - Vital Signs Vital Signs: Vital Signs Temp Pulse Resp BP Pulse Ox 12/24/17 21:37 98.8 F 50 16 130/69 94 12/24/17 21:27 97.9 F 56 16 138/77 96 12/24/17 21:17 98.0 F 65 16 113/80 96 12/24/17 21:07 98.0 F 76 16 130/82 95 12/24/17 19:27 97.8 F 47 14 131/84 100 12/24/17 14:25 97.8 F 45 16 110/71 96 12/24/17 10:26 97.6 F 52 16 127/78 95 12/24/17 06:09 98.2 F 51 14 127/79 100 Intake and Output Patient Weight 12/25/17 23:59 Weight 110.3 kg - Lungs Lungs: Clear Ascult./Percussion - Airway Airway: Non-obstructed - Cardiovascular Regular Rate - Mental Status Mental Status: Alert & Oriented, Answers Appropriately - Pain Pain Scale: 0 Pain Scale used: Numeric (1 - 10) - Nausea Vomiting Nausea Vomiting: Present - Hydration Hydration: Tolerates oral liquids, Able to void - Discharge PostOp Status: Transfer Patient to floor
[2017-12-25] MEDS: OXYCODONE Oral CONC 10 MG/0.5 ML ORAL.SYG SL PRN ×4 (05:58→22:35)
[2017-12-25] MEDS: 0.9 % Sodium Chloride 1,000 ML IVC SCH (07:58)
[2017-12-25] MEDS: Pantoprazole 40 MG VIAL IVP SCH (07:58)
--- NOTE | 2017-12-25 10:02 | Internal Med Progress Note ---
Hospitalist Progress Note - Encounter Date of Encounter: 12/25/17 Time of Encounter: 10:02 - Subjective Interval History: Patient seen and examined underwent surgery yesterday and NG tube is in place on surgical postoperative evaluation pending - Exam Vitals: Temp Pulse Resp BP Pulse Ox 98.4 F 59 16 118/72 93 12/25/17 05:05 12/25/17 05:05 12/25/17 05:05 12/25/17 05:05 12/25/17 05:05 Exam: GEN: NAD HEENT: AT, NC, No cyanosis, oral mucosa is moist, No JVD Lymphatics: No lymphadenoapthy Eyes: Extrocular muscles intact, anicteric CVS:RRR. S1, S2, No m/r/g RESP: CTAB ABD: Distended, generalized tenderness, no rebound, + absent bowel sounds EXT: No edema, No rashes, 2+ DP NEURO: Nonfocal, CN II-XII intact, No focal motor or sensory deficits Psych: Cooperative, Not anxious or depressed - Assessment and Plan (1) Abdominal pain Current Visit: Yes Status: Acute Assessment and Plan: Underwent surgery for bowel obstruction relief NG tube is in place patient clinically stable no complication (2) Small bowel obstruction Current Visit: Yes Status: Acute Assessment and Plan: Postop management by surgery (3) Bradycardia Current Visit: Yes Status: Acute Assessment and Plan: Chronic and asymptomatic hemodynamically stable - Time Spent with Patient Total time spent is greater than 50% in coordination of care (as documented) at patient's floor/unit and/or counseling patient: Internal Medicine: Result - Labs CBC & Chem 7: 12/24/17 04:30 12/25/17 03:32 Labs: BMP 12/25/17 03:32 Sodium 136 Potassium 4.0 Chloride 103 Carbon Dioxide 24 BUN 10 Creatinine 0.80 Glucose 114 H Calcium 8.6 Consult Discharge Plan - Plan Referrals: Alicia Zaldivar, CONCRETE MIXING PLANT LABORER [Primary Care Provider] - (1) Abdominal pain Qualifiers: Abdominal location: epigastric Qualified Code(s): R10.13 - Epigastric pain
--- NOTE | 2017-12-25 11:33 | General Surgery Progress Note ---
<TamikoDarrell S - Last Filed: 12/25/17 11:29> Date of Encounter: 12/25/17 Time of Encounter: 07:45 - Assessment and Plan (1) Small bowel obstruction Current Visit: Yes Status: Acute Patient is POD 1 for lysis of adhesions for SBO Will remove NGT today Start on CLD - 300 ml per shift Zofran for nausea Protonix for GI prophylaxis Fentanyl and oxycodone for pain IVF 125 ml/hr Up out of bed today with assistance (2) Bradycardia Current Visit: Yes Status: Acute Management per primary team Patient is at baseline Subjective Patient reports: feels better, pain is less, no flatus, no bowel movement Narrative: Patient doing well this morning. States his pain is controlled. He denies nausea, vomiting, flatus, BMs, fever/chills, SOB, CP. Objective Vital Signs - Last 8 Hours Temp Pulse Resp BP Pulse Ox 12/25/17 10:07 97.9 F 49 18 168/90 98 12/25/17 05:05 98.4 F 59 16 118/72 93 Intake and Output 12/24/17 12/25/17 12/25/17 23:59 07:59 15:59 Intake Total 0 / 0 1200 / 1200 Output Total 1650 / 1650 1475 / 1475 550 / 550 Balance -1650 / -1650 -275 / -275 -550 / -550 Intake: IV Fluids 1200 / 1200 0.9 % Sodium Chloride 1,000 ML 1000 / 1000 @ 125 mls/hr IVC .Q8H [facility] Rx#: [id number] Ofirmev 1,000 mg/100 ml 1,000 100 / 100 mg In 100 ml @ 400 mls/hr IVPB ONCE ONE Rx#:[id number] Ancef 2,000 MG In 0.9 % Sodium 100 / 100 Chloride 100 ML @ 200 mls/hr IVPB Q8HR [facility] Rx#:[id number] Oral 0 / 0 Output: Urine 1625 / 1625 1475 / 1475 500 / 500 Gastric Tube Lavage Amount 5 / 5 Right Nare 5 / 5 Estimated Blood Loss 20 / 20 Gastric Drainage 0 / 0 0 / 0 50 / 50 Other: Meal NPO DINNER Weight 110.3 kg Blood Glucose* 91 94 Patient Weight 12/25/17 23:59 Weight 110.3 kg - General physical appearance well developed, well nourished - Respiratory normal expansion, normal respiratory effort - Cardiovascular Cardiovascular exam: Present: RRR - Abdomen Abdomen: Present: bowel sounds present, soft, tender (appropriately) - Incision Incision: Present: clean and dry, intact - Psychiatric oriented to time, oriented to person, oriented to place - Labs 12/24/17 04:30 12/25/17 03:32 Diabetes panel 12/25/17 Range/Units 03:32 Sodium 136 (136-145) mEq/L Potassium 4.0 (3.5-5.1) mEq/L Chloride 103 (98-107) mEq/L Carbon Dioxide 24 (23-29) mEq/L BUN 10 (6-20) mg/dL Creatinine 0.80 (0.70-1.30) mg/dL Glucose 114 H (70-105) mg/dL Calcium 8.6 (8.6-10.3) mg/dL Calcium panel 12/25/17 Range/Units 03:32 Calcium 8.6 (8.6-10.3) mg/dL Pituitary panel 12/25/17 Range/Units 03:32 Sodium 136 (136-145) mEq/L Potassium 4.0 (3.5-5.1) mEq/L Chloride 103 (98-107) mEq/L Carbon Dioxide 24 (23-29) mEq/L BUN 10 (6-20) mg/dL Creatinine 0.80 (0.70-1.30) mg/dL Glucose 114 H (70-105) mg/dL Calcium 8.6 (8.6-10.3) mg/dL Adrenal panel 12/25/17 Range/Units 03:32 Sodium 136 (136-145) mEq/L Potassium 4.0 (3.5-5.1) mEq/L Chloride 103 (98-107) mEq/L Carbon Dioxide 24 (23-29) mEq/L BUN 10 (6-20) mg/dL Creatinine 0.80 (0.70-1.30) mg/dL Glucose 114 H (70-105) mg/dL Calcium 8.6 (8.6-10.3) mg/dL Consult Discharge Plan - Plan Referrals: Alicia Zaldivar, FACING CUTTING MACHINE OPERATOR [Primary Care Provider] - <Glenn Valencia - Last Filed: 12/25/17 16:06> Date of Encounter: 12/25/17 Objective Vital Signs - Last 8 Hours Temp Pulse Resp BP Pulse Ox 12/25/17 10:07 97.9 F 49 18 168/90 98 Intake and Output 12/25/17 12/25/17 12/25/17 07:59 15:59 23:59 Intake Total 1200 / 1200 1250 / 1250 Output Total 1475 / 1475 870 / 870 Balance -275 / -275 380 / 380 Intake: IV Fluids 1200 / 1200 1100 / 1100 0.9 % Sodium Chloride 1,000 ML 1000 / 1000 @ 125 mls/hr IVC .Q8H [facility] Rx#: [id number] Ofirmev 1,000 mg/100 ml 1,000 100 / 100 mg In 100 ml @ 400 mls/hr IVPB ONCE ONE Rx#:[id number] Ancef 2,000 MG In 0.9 % Sodium 100 / 100 100 / 100 Chloride 100 ML @ 200 mls/hr IVPB Q8HR [facility] Rx#:[id number] Oral 150 / 150 Output: Urine 1475 / 1475 820 / 820 Gastric Drainage 0 / 0 50 / 50 Other: # Bowel Movements 0 Weight 110.3 kg Blood Glucose* 94 Patient Weight 12/25/17 23:59 Weight 110.3 kg - Labs 12/24/17 04:30 12/25/17 03:32 Diabetes panel 12/25/17 Range/Units 03:32 Sodium 136 (136-145) mEq/L Potassium 4.0 (3.5-5.1) mEq/L Chloride 103 (98-107) mEq/L Carbon Dioxide 24 (23-29) mEq/L BUN 10 (6-20) mg/dL Creatinine 0.80 (0.70-1.30) mg/dL Glucose 114 H (70-105) mg/dL Calcium 8.6 (8.6-10.3) mg/dL Calcium panel 12/25/17 Range/Units 03:32 Calcium 8.6 (8.6-10.3) mg/dL Pituitary panel 12/25/17 Range/Units 03:32 Sodium 136 (136-145) mEq/L Potassium 4.0 (3.5-5.1) mEq/L Chloride 103 (98-107) mEq/L Carbon Dioxide 24 (23-29) mEq/L BUN 10 (6-20) mg/dL Creatinine 0.80 (0.70-1.30) mg/dL Glucose 114 H (70-105) mg/dL Calcium 8.6 (8.6-10.3) mg/dL Adrenal panel 12/25/17 Range/Units 03:32 Sodium 136 (136-145) mEq/L Potassium 4.0 (3.5-5.1) mEq/L Chloride 103 (98-107) mEq/L Carbon Dioxide 24 (23-29) mEq/L BUN 10 (6-20) mg/dL Creatinine 0.80 (0.70-1.30) mg/dL Glucose 114 H (70-105) mg/dL Calcium 8.6 (8.6-10.3) mg/dL - Attending Attestation I examined this patient and my medical decision-making was reviewed with the Resident Physician. I agree with the documented findings, disposition and treatment plan as described except to the extent set forth below. The patient is seen and evaluated on morning rounds with the resident. He has excellent pain control. He passed some flatus. The vein is reasonable to remove his nasogastric tube at this point Glenn Valencia MD FACS
[2017-12-25] MEDS: Ketorolac 15 MG/ML VIAL IVP SCH ×2 (16:25→17:44)
[2017-12-25] MEDS: Simethicone 80 MG TAB.CHEW PO PRN ×2 (16:26→20:54)
[2017-12-25] MEDS: Acetaminophen IV 1,000 MG/100 ML INFUS..BTL IVPB SCH (18:12)
[2017-12-26] MEDS: Ketorolac 15 MG/ML VIAL IVP SCH ×4 (00:45→17:15)
[2017-12-26] MEDS: Acetaminophen IV 1,000 MG/100 ML INFUS..BTL IVPB SCH ×3 (00:46→12:44)
[2017-12-26] MEDS: *HR* Heparin 5,000 UNIT/ML VIAL SQ SCH ×2 (05:52→17:15)
[2017-12-26 06:37] LABS: Basophils % 0.2 %; Eosinophils % 0.7 %; Hematocrit 39.4 % (37.5-50.1); Hemoglobin 13.5 g/dL (12.9-16.9); Immature Granulocytes % 0.4 % (0-4); Lymphocytes # 1.5 K/mcL (0.6-4.6); Lymphocytes % 33.2 %; Mean Corpuscular HGB Conc 34.3 g/dL (31.6-35.5); Mean Corpuscular Hemoglobin 29.3 pg (28.0-33.3); Mean Corpuscular Volume 85.5 fL (83.0-100.0); Mean Platelet Volume 9.7 fL (9.4-12.4); Monocytes # 0.4 K/mcL (0.0-1.3); Monocytes % 9.5 %; Neutrophils # 2.6 K/mcL (1.6-8.9); Platelet Count 157 K/mcL (140-400); Red Blood Count 4.61 M/mcL (4.19-5.50); Red Cell Distribution Width 12.3 % (11.5-14.5)
[2017-12-26 06:50] LABS: BUN/Creatinine Ratio 13 (6-26); Blood Urea Nitrogen 11 mg/dL (6-20); Calcium 8.7 mg/dL (8.6-10.3); Carbon Dioxide 27 mEq/L (23-29); Chloride 104 mEq/L (98-107); Glucose 93 mg/dL (70-105); Osmolality,Calculated 283 (280-300); Potassium 3.7 mEq/L (3.5-5.1); Sodium 137 mEq/L (136-145); eGFR For Non-African Americans > 60 (> 60)
[2017-12-26] MEDS: Pantoprazole 40 MG VIAL IVP SCH (08:25)
[2017-12-26 11:55] VITALS: BP 128/78
[2017-12-26] MEDS: Simethicone 80 MG TAB.CHEW PO PRN ×2 (12:44→17:10)
--- NOTE | 2017-12-26 14:10 | Discharge Summary ---
- NOTES TO OUTPATIENT PROVIDER Notes to Outpatient Provider: Patient was admitted for small bowel obstructions and underwent adhesiolysis uneventfully on 12/24. Tolerated diet and passing flatus post-op. He will be discharged home with abdominal binders and surgery follow up outpatient. Date of Encounter: 12/26/17 Time of Encounter: 11:00 - Discharge Diagnosis (1) DVT prophylaxis Priority: Secondary Status: Acute (2) Small bowel obstruction Priority: Primary Status: Acute (3) Bradycardia Priority: Secondary Status: Acute Hospital course: Mr. Hawkins is a 27 year old male with history of appendicectomy was admitted for small bowel obstructions and underwent adhesiolysis uneventfully on 12/24. Tolerated diet and passing flatus post-op. He will be discharged home on POD2 with abdominal binders and surgery follow up outpatient. Discharge discussed with: patient, healthcare network pricing consultant - Time Spent with Patient Total time spent providing and/or coordinating discharge services: 32 mins - Discharge Medications Prescriptions: HYDROcodone/Acet 5/325 mg [[place] 5-325 mg] 1 tab PO Q6H PRN 3 Days #10 tab PRN Reason: Severe Pain Home Medications: RX: SUMAtriptan Succinate [Imitrex] 100 mg PO PRN PRN 12/11/14 [History] HYDROcodone/Acet 5/325 mg [[place] 5-325 mg] 1 tab PO Q6H PRN 3 Days #10 tab 12/26/17 [Rx] Allergies/Adverse Reactions: Allergy/AdvReac Type Severity Reaction Status Date / Time sulfamethoxazole Allergy Rash Verified 12/23/17 16:25 [From Bactrim] trimethoprim [From Bactrim] Allergy Rash Verified 12/23/17 16:25 Date of admission: 12/24/17 19:57 Primary care physician: Alicia Zaldivar CNP Consults: 12/24/17 03:57 Consult to Surgery [CONS] Stat Consulting Provider: Surgery [facility] Reason for Consult: SBO Call Completed: Yes - Constitutional Vitals: Temp Pulse Resp BP Pulse Ox 99 F 72 16 128/78 96 12/26/17 11:52 12/26/17 11:52 12/26/17 11:52 12/26/17 11:52 12/26/17 11:52 Exam: General: Alert and oriented, not in acute distress. Cardiovascular:Normal S1 & S2, No JVD. Pulse regular. Lungs: clear to auscultation, no wheezes/rales Abdomen:Soft, mild incisional tenderness, abdominal binder insitu Extremities:No deformity or swelling - Patient Status Disposition: Home, Self-Care Condition: Fair Functional capacity at discharge: independent ambulation Overall status at discharge: patient is progressing back to baseline - Discharge Instructions Follow Up With: Alicia Zaldivar CNP [Primary Care Provider] - Glenn Valencia MD [Partnered Physician] - Additional Instructions: FOllow up with Surgery as outpatient - Diet and Activity Activity: resume usual activities as tolerated Diet: advance to your usual diet (avoid strenous exercise/activity)
--- NOTE | 2017-12-26 14:34 | General Surgery Progress Note ---
Date of Encounter: 12/26/17 Time of Encounter: 14:31 - Assessment and Plan (1) Small bowel obstruction Current Visit: Yes Status: Acute s/p ex lap lysis of adhesions tolerating fulls and advance to regular if tolerates ok to dc Subjective Patient reports: no new complaints, feels better, still having pain, pain is less, tolerating liquids well, flatus, no bowel movement Objective Vital Signs - Last 8 Hours Temp Pulse Resp BP Pulse Ox 12/26/17 11:52 99 F 72 16 128/78 96 12/26/17 06:39 98.2 F 57 16 140/93 96 Intake and Output 12/25/17 12/26/17 12/26/17 23:59 07:59 15:59 Intake Total 1530 / 1530 200 / 200 340 / 340 Output Total 925 / 925 675 / 675 450 / 450 Balance 605 / 605 -475 / -475 -110 / -110 Intake: IV Fluids 1050 / 1050 200 / 200 100 / 100 0.9 % Sodium Chloride 1,000 ML 950 / 950 @ 125 mls/hr IVC .Q8H MINDI Rx#: [id number] Ofirmev 1,000 mg/100 ml 1,000 100 / 100 200 / 200 100 / 100 mg In 100 ml @ 400 mls/hr IVPB Q6HR MINDI Rx#:[id number] Oral 480 / 480 0 / 0 240 / 240 Output: Urine 925 / 925 675 / 675 450 / 450 Other: Meal Dinner Lunch Percent of Meal Consumed 10% # Bowel Movements 0 0 Weight 109.8 kg Patient Weight 12/26/17 23:59 Weight 109.8 kg - General physical appearance well developed, well nourished, no distress - Eyes PERRL, normal ocular movement - ENT normal mucosa, normocephalic - Neck Neck exam: trachea midline - Respiratory normal expansion, clear to auscultation - Cardiovascular Cardiovascular exam: Present: RRR - Abdomen Abdomen: Present: bowel sounds present, soft, tender (approp post op tenderness) - Incision Incision: Present: clean and dry, intact - Integumentary no rash, no growths - Neurologic CN 2-12 grossly intact - Musculoskeletal normal posture - Psychiatric oriented to time, oriented to person, oriented to place, speech is normal, memory intact - Labs 12/26/17 06:03 12/26/17 06:03 Diabetes panel 12/26/17 Range/Units 06:03 Sodium 137 (136-145) mEq/L Potassium 3.7 (3.5-5.1) mEq/L Chloride 104 (98-107) mEq/L Carbon Dioxide 27 (23-29) mEq/L BUN 11 (6-20) mg/dL Creatinine 0.87 (0.70-1.30) mg/dL Glucose 93 (70-105) mg/dL Calcium 8.7 (8.6-10.3) mg/dL Calcium panel 12/26/17 Range/Units 06:03 Calcium 8.7 (8.6-10.3) mg/dL Pituitary panel 12/26/17 Range/Units 06:03 Sodium 137 (136-145) mEq/L Potassium 3.7 (3.5-5.1) mEq/L Chloride 104 (98-107) mEq/L Carbon Dioxide 27 (23-29) mEq/L BUN 11 (6-20) mg/dL Creatinine 0.87 (0.70-1.30) mg/dL Glucose 93 (70-105) mg/dL Calcium 8.7 (8.6-10.3) mg/dL Adrenal panel 12/26/17 Range/Units 06:03 Sodium 137 (136-145) mEq/L Potassium 3.7 (3.5-5.1) mEq/L Chloride 104 (98-107) mEq/L Carbon Dioxide 27 (23-29) mEq/L BUN 11 (6-20) mg/dL Creatinine 0.87 (0.70-1.30) mg/dL Glucose 93 (70-105) mg/dL Calcium 8.7 (8.6-10.3) mg/dL Consult Discharge Plan - Plan Additional Instructions: FOllow up with Surgery as outpatient ok to shower, no tub baths or swimming pools no lifting over 20 lbs for 6 weeks after surgery no driving until seen by surgeon at followup appt take colace as written for constipation if run into issues with bowels take 1/3 bottle of magnesium citrate, wait 4-5 hrs and if no results drink another 1/3 bottle, wait until next day if no results drink last 1/3 of bottle Referrals: Alicia Zaldivar CNP [Primary Care Provider] - Glenn Valencia MD [Partnered Physician] - (need appt for 2 week followup) Prescriptions: Docusate [Colace] 100 mg PO TID #30 capsule HYDROcodone/Acet 5/325 mg [[place] 5-325 mg] 1 tab PO Q4H PRN 5 Days #20 tab PRN Reason: Pain Simethicone [Bicarsim] 80 mg PO TID PRN #30 tablet PRN Reason: bloating
[2017-12-26] MEDS ORDERED: *HR* HYDROcodone/Acet 5/325 mg TABLET PO PRN (14:36)
== END 2017-12-26 18:25 | disposition home or self-care (01) | DRG 337 ==
LOC: EMEROOARM 23:17 → 3ANU 23:17 → SUATTDRO 12-24 19:57
PROVIDERS: ADMIT Internal Medicine; ATTEND Internal Medicine

== ENCOUNTER 2018-11-23 13:49 | Observation (INO) ==
[2018-11-23] MEDS ORDERED: Morphine Sulfate 2 MG/ML SYRINGE IVP ONE ×2 (14:26→15:51)
[2018-11-23 14:42] LABS: Bilirubin,Urine Small (Negative); Blood,Urine Large (Negative); Clarity,Urine Clear (Clear); Color,Urine Dark Yellow (Yellow); Glucose,Urine (UA) Normal (Normal); Ketones,Urine 40 mg/dL (Negative); Leukocyte Esterase,Urine Negative (Negative); Nitrite,Urine Negative (Negative); Protein,Urine Trace mg/dL (Neg-Trace); Specific Gravity,Urine 1.025 (1.010-1.025); Urobilinogen,Urine Normal (Normal)
[2018-11-23 14:43] LABS: Basophils % 0.2 %; Hematocrit 44.4 % (37.5-50.1); Hemoglobin 15.2 g/dL (12.9-16.9); Immature Granulocytes % 0.2 % (0-4); Lymphocytes # 0.7 K/mcL (0.6-4.6); Lymphocytes % 14.5 %; Mean Corpuscular HGB Conc 34.2 g/dL (31.6-35.5); Mean Corpuscular Hemoglobin 29.8 pg (28.0-33.3); Mean Corpuscular Volume 87.1 fL (83.0-100.0); Mean Platelet Volume 9.1 fL (9.4-12.4); Monocytes # 0.6 K/mcL (0.0-1.3); Monocytes % 11.1 %; Neutrophils # 3.8 K/mcL (1.6-8.9); Platelet Count 128 K/mcL (140-400); White Blood Count 5.1 K/mcL (4.3-11.1)
[2018-11-23 14:44] LABS: Bacteria,Urine None Seen per hpf (None-Few); Hyaline Casts,Urine None Seen per lpf (None-Few); RBC,Urine 15-30 per hpf (0-3); Squamous Epithelial Cell,Urine Moderate per lpf (None-Few); WBC,Urine 0-3 per hpf (0-3)
[2018-11-23 15:02] LABS: BUN/Creatinine Ratio 14 (6-26); Blood Urea Nitrogen 20 mg/dL (6-20); Calcium 8.9 mg/dL (8.6-10.3); Carbon Dioxide 23 mEq/L (23-29); Chloride 103 mEq/L (98-107); Glucose 83 mg/dL (70-105); Osmolality,Calculated 284 (280-300); Potassium 3.8 mEq/L (3.5-5.1); Sodium 136 mEq/L (136-145); eGFR For African Americans > 60 (> 60); eGFR For Non-African Americans > 60 (> 60)
[2018-11-23 15:04] LABS: Mucus,Urine Moderate (Few)
[2018-11-23] MEDS ORDERED: 0.9 % Sodium Chloride 1,000 ML IVC ONE (15:12)
[2018-11-23] MEDS ORDERED: Ondansetron ODT 4 MG TAB.RAPDIS SL PRN (16:42)
[2018-11-23] MEDS ORDERED: MOM Conc 10 ML UD.LIQ PO PRN (16:42)
[2018-11-23] MEDS ORDERED: Naloxone 0.4 MG/ML INJ IVP PRN (16:42)
[2018-11-23] MEDS ORDERED: 0.9 % Sodium Chloride 1,000 ML IVC SCH (16:45)
[2018-11-23] MEDS: Morphine Sulfate 2 MG/ML SYRINGE IVP PRN (18:17)
[2018-11-23] MEDS: levoFLOXacin 750 MG/150 ML 750 MG/150 ML BAG IVPB SCH (18:22)
[2018-11-23] MEDS ORDERED: Ondansetron 4 MG/2 ML VIAL ONE (21:20)
[2018-11-23] MEDS ORDERED: Ondansetron 4 MG/2 ML VIAL IVP ONE (21:21)
[2018-11-23] MEDS ORDERED: Acetaminophen IV 500 MG/50 ML INFUS..BTL IVPB ONE (23:42)
[2018-11-23] MEDS ORDERED: *HR* Promethazine 25 MG/ML VIAL IVP ONE (23:42)
[2018-11-24] MEDS: Morphine Sulfate 2 MG/ML SYRINGE IVP PRN (05:44)
[2018-11-24 06:36] LABS: Basophils % 0.2 %; Eosinophils % 0.2 %; Hematocrit 42.5 % (37.5-50.1); Hemoglobin 14.1 g/dL (12.9-16.9); Immature Granulocytes % 0.2 % (0-4); Lymphocytes # 1.1 K/mcL (0.6-4.6); Lymphocytes % 26.3 %; Mean Corpuscular HGB Conc 33.2 g/dL (31.6-35.5); Mean Corpuscular Hemoglobin 29.6 pg (28.0-33.3); Mean Corpuscular Volume 89.1 fL (83.0-100.0); Mean Platelet Volume 9.7 fL (9.4-12.4); Monocytes # 0.6 K/mcL (0.0-1.3); Monocytes % 14.1 %; Neutrophils # 2.6 K/mcL (1.6-8.9); Platelet Count 121 K/mcL (140-400); Red Blood Count 4.77 M/mcL (4.19-5.50); Red Cell Distribution Width 11.9 % (11.5-14.5); White Blood Count 4.3 K/mcL (4.3-11.1)
[2018-11-24 06:53] LABS: BUN/Creatinine Ratio 13 (6-26); Blood Urea Nitrogen 20 mg/dL (6-20); Calcium 8.2 mg/dL (8.6-10.3); Carbon Dioxide 23 mEq/L (23-29); Chloride 105 mEq/L (98-107); Glucose 97 mg/dL (70-105); Osmolality,Calculated 285 (280-300); Sodium 136 mEq/L (136-145); eGFR For African Americans > 60 (> 60); eGFR For Non-African Americans 52 (> 60)
[2018-11-24] MEDS ORDERED: Ondansetron ODT 4 MG TAB.RAPDIS SL PRN ×2 (07:21→14:41)
[2018-11-24] MEDS: levoFLOXacin 750 MG/150 ML 750 MG/150 ML BAG IVPB SCH (09:38)
[2018-11-24] MEDS ORDERED: *HR* HYDROmorphone (PF) 1 MG/ML SYRINGE IVP ONE (11:59)
[2018-11-24] MEDS ORDERED: Acetaminophen IV 1,000 MG/100 ML INFUS..BTL IVPB ONE ×2 (12:59→14:41)
[2018-11-24] MEDS ORDERED: Morphine Sulfate 2 MG/ML SYRINGE IVP PRN (13:00)
[2018-11-24] MEDS ORDERED: *HR* HYDROcodone/Acet 5/325 mg TABLET PO PRN (13:00)
[2018-11-24] MEDS ORDERED: Isovue-300 50ML VIAL ONE (13:10)
[2018-11-24] MEDS ORDERED: *HR* FentaNYL (PF) 100 MCG/2 ML VIAL ONE (13:17)
[2018-11-24] MEDS ORDERED: *HR* Midazolam HCl 2 MG/2 ML VIAL ONE (13:17)
[2018-11-24] MEDS ORDERED: *HR* Propofol 200 MG/20 ML VIAL IVP ONE (13:18)
[2018-11-24] MEDS ORDERED: Dexamethasone 4 MG/ML VIAL ONE (13:22)
[2018-11-24] MEDS ORDERED: Lidocaine -MPF 2% 2 ML VIAL ONE (13:22)
[2018-11-24] MEDS ORDERED: Ondansetron 4 MG/2 ML VIAL ONE (13:22)
[2018-11-24] MEDS ORDERED: 0.9 % Sodium Chloride 1,000 ML IVC SCH (14:41)
[2018-11-24] MEDS ORDERED: MOM Conc 10 ML UD.LIQ PO PRN (14:41)
[2018-11-24 15:14] VITALS: BP 110/69
[2018-11-25] MEDS ORDERED: levoFLOXacin 750 MG/150 ML 750 MG/150 ML BAG IVPB SCH (09:00)
== END 2018-11-24 16:39 | disposition home or self-care (01) ==
LOC: 3ANU 13:49 → EMEROOARM 13:49 → SUATTDRO 16:27 → 3ANU 17:39
PROVIDERS: ADMIT Internal Medicine; ATTEND Internal Medicine